=== PATIENT | male | born 1995 | race African-American/Black ===

== ENCOUNTER 2019-06-04 15:46 | Emergency (ER) | payer OTHER ==
[~2019-06-04] VITALS: Ht 170.2 cm; Wt 95.0 kg
[2019-06-04 21:05] LABS: CLARITY URINE CLOUDY (CLEAR); COLOR URINE YELLOW (YELLOW); KETONES URINE TRACE (NEGATIVE); LEUKOCYTE ESTERASE URINE TRACE (NEGATIVE); NITRITE URINE NEGATIVE (NEGATIVE); OCCULT BLOOD URINE 3+ (NEGATIVE); PROTEIN URINE 3+ (NEGATIVE); SPECIFIC GRAVITY URINE 1.039 (1.005-1.030)
[2019-06-05 01:21] VITALS: BP 115/64
== END 2019-06-05 01:22 | disposition home or self-care (01) ==
LOC: ER 15:46
DX: R31.9 Hematuria, unspecified (principal); R10.9 Unspecified abdominal pain; R07.81 Pleurodynia; F12.10 Cannabis abuse, uncomplicated
CPT/HCPCS: 76770; 81003; 99284